=== PATIENT | female | born 1965 | race Caucasian/White ===

== ENCOUNTER 2022-04-09 14:56 | Inpatient (IN) ==
[2022-04-09] MEDS: ARIPiprazole 5 MG TABLET PO SCH (21:35)
[2022-04-09] MEDS: Furosemide 40 MG TABLET PO SCH (21:36)
[2022-04-09] MEDS: CarBAMazepine XR (12 hr) 100 MG TAB PO SCH (21:36)
[2022-04-09] MEDS: Famotidine 20 MG TABLET PO SCH (21:36)
[2022-04-10 07:11] LABS: Basophils # 0.1 K/mcL (0.0-0.2); Basophils % 0.6 %; Eosinophils # 0.4 K/mcL (0.0-0.6); Eosinophils % 4.4 %; Hematocrit 41.6 % (35.3-44.9); Hemoglobin 13.8 g/dL (11.5-15.4); Immature Granulocytes % 0.3 % (0-4); Lymphocytes # 2.3 K/mcL (0.6-4.6); Mean Corpuscular HGB Conc 33.2 g/dL (31.6-35.5); Mean Corpuscular Hemoglobin 31.5 pg (28.0-33.3); Mean Platelet Volume 12.3 fL (9.4-12.4); Monocytes # 0.7 K/mcL (0.0-1.3); Monocytes % 8.8 %; Neutrophils # 4.5 K/mcL (1.6-8.9); Platelet Count 231 K/mcL (140-400); Red Blood Count 4.38 M/mcL (3.82-4.97); Red Cell Distribution Width 14.7 % (11.5-14.5); Segmented Neutrophils % 56.9 %
[2022-04-10 07:27] LABS: Calcium 10.5 mg/dL (8.6-10.3); Potassium 3.4 mEq/L (3.5-5.1)
[2022-04-10] MEDS: Aspirin 81 MG TAB.CHEW PO SCH (09:05)
[2022-04-10] MEDS: Multivit/Ca/Min/Fe/FA 1 TAB TABLET PO SCH (09:05)
[2022-04-10] MEDS: Topiramate 25 MG TABLET PO SCH ×2 (09:05→21:30)
[2022-04-10] MEDS: CarBAMazepine XR (12 hr) 100 MG TAB PO SCH ×2 (09:05→21:30)
[2022-04-10] MEDS: levETIRAcetam 250 MG TABLET PO SCH ×2 (09:07→21:30)
[2022-04-10] MEDS: Famotidine 20 MG TABLET PO SCH ×2 (09:07→21:30)
[2022-04-10] MEDS: DICLOFENAC SODIUM 20 GM TP SCH (09:11)
[2022-04-10] MEDS: VORTIOXETINE HYDROBROMIDE 10 MG PO SCH (09:11)
[2022-04-10] MEDS: Cariprazine Hcl [Vraylar] 4.5 MG PO SCH (09:11)
[2022-04-10] MEDS: Furosemide 40 MG TABLET PO SCH (09:11)
[2022-04-10] MEDS ORDERED: Spironolactone 12.5 MG TABLET PO SCH (15:45)
[2022-04-10] MEDS ORDERED: Ondansetron Oral Soln 2 MG/2.5 ML ORAL.SYG PO PRN (15:59)
[2022-04-10] MEDS ORDERED: Ondansetron ODT 4 MG TAB.RAPDIS SL PRN (18:27)
[2022-04-10] MEDS: ARIPiprazole 5 MG TABLET PO SCH (21:30)
[2022-04-11] MEDS: *HR* Enoxaparin 40 MG/0.4 ML SYRINGE SQ SCH (05:44)
[2022-04-11] MEDS: CarBAMazepine XR (12 hr) 100 MG TAB PO SCH ×2 (09:58→21:08)
[2022-04-11] MEDS: levETIRAcetam 250 MG TABLET PO SCH ×2 (09:58→21:08)
[2022-04-11] MEDS: Multivit/Ca/Min/Fe/FA 1 TAB TABLET PO SCH (09:58)
[2022-04-11] MEDS: Famotidine 20 MG TABLET PO SCH ×2 (09:59→21:08)
[2022-04-11] MEDS: VORTIOXETINE HYDROBROMIDE 10 MG PO SCH (09:59)
[2022-04-11] MEDS: Aspirin 81 MG TAB.CHEW PO SCH (09:59)
[2022-04-11] MEDS: Topiramate 25 MG TABLET PO SCH ×2 (09:59→21:08)
[2022-04-11] MEDS: Cariprazine Hcl [Vraylar] 4.5 MG PO SCH (09:59)
[2022-04-11] MEDS: DICLOFENAC SODIUM 20 GM TP SCH (09:59)
[2022-04-11] MEDS: Sennosides/Docusate Sodium TABLET PO PRN (17:54)
[2022-04-11] MEDS: ARIPiprazole 5 MG TABLET PO SCH (21:08)
[2022-04-12] MEDS: *HR* Enoxaparin 40 MG/0.4 ML SYRINGE SQ SCH (06:37)
[2022-04-12] MEDS: CarBAMazepine XR (12 hr) 100 MG TAB PO SCH ×2 (09:12→20:26)
[2022-04-12] MEDS: Aspirin 81 MG TAB.CHEW PO SCH (09:12)
[2022-04-12] MEDS: Topiramate 25 MG TABLET PO SCH ×2 (09:12→20:26)
[2022-04-12] MEDS: Famotidine 20 MG TABLET PO SCH ×2 (09:12→20:26)
[2022-04-12] MEDS: levETIRAcetam 250 MG TABLET PO SCH ×2 (09:12→20:26)
[2022-04-12] MEDS: VORTIOXETINE HYDROBROMIDE 10 MG PO SCH (09:13)
[2022-04-12] MEDS: Multivit/Ca/Min/Fe/FA 1 TAB TABLET PO SCH (09:13)
[2022-04-12] MEDS: Cariprazine Hcl [Vraylar] 4.5 MG PO SCH (09:13)
[2022-04-12] MEDS: DICLOFENAC SODIUM 20 GM TP SCH (09:13)
[2022-04-12] MEDS: ARIPiprazole 5 MG TABLET PO SCH (20:26)
[2022-04-13] MEDS: *HR* Enoxaparin 40 MG/0.4 ML SYRINGE SQ SCH (06:40)
[2022-04-13] MEDS: Multivit/Ca/Min/Fe/FA 1 TAB TABLET PO SCH (09:41)
[2022-04-13] MEDS: Topiramate 25 MG TABLET PO SCH ×2 (09:42→20:16)
[2022-04-13] MEDS: DICLOFENAC SODIUM 20 GM TP SCH (09:42)
[2022-04-13] MEDS: Cariprazine Hcl [Vraylar] 4.5 MG PO SCH (09:42)
[2022-04-13] MEDS: Famotidine 20 MG TABLET PO SCH ×2 (09:42→20:16)
[2022-04-13] MEDS: Aspirin 81 MG TAB.CHEW PO SCH (09:42)
[2022-04-13] MEDS: VORTIOXETINE HYDROBROMIDE 10 MG PO SCH (09:42)
[2022-04-13] MEDS: levETIRAcetam 250 MG TABLET PO SCH ×2 (09:42→20:16)
[2022-04-13] MEDS: CarBAMazepine XR (12 hr) 100 MG TAB PO SCH ×2 (09:44→20:16)
[2022-04-13] MEDS: ARIPiprazole 5 MG TABLET PO SCH (20:16)
[2022-04-14] MEDS: *HR* Enoxaparin 40 MG/0.4 ML SYRINGE SQ SCH (06:07)
[2022-04-14] MEDS: Topiramate 25 MG TABLET PO SCH ×2 (08:09→22:50)
[2022-04-14] MEDS: CarBAMazepine XR (12 hr) 100 MG TAB PO SCH ×2 (08:09→22:51)
[2022-04-14] MEDS: Famotidine 20 MG TABLET PO SCH ×2 (08:10→22:50)
[2022-04-14] MEDS: Multivit/Ca/Min/Fe/FA 1 TAB TABLET PO SCH (08:10)
[2022-04-14] MEDS: levETIRAcetam 250 MG TABLET PO SCH ×2 (08:10→22:51)
[2022-04-14] MEDS: VORTIOXETINE HYDROBROMIDE 10 MG PO SCH (08:10)
[2022-04-14] MEDS: Aspirin 81 MG TAB.CHEW PO SCH (08:10)
[2022-04-14] MEDS: DICLOFENAC SODIUM 20 GM TP SCH (08:11)
[2022-04-14] MEDS: Cariprazine Hcl [Vraylar] 4.5 MG PO SCH (08:11)
[2022-04-14] MEDS: Sennosides/Docusate Sodium TABLET PO PRN (08:20)
[2022-04-14] MEDS ORDERED: Spironolactone 25 MG TABLET PO ONE (09:19)
[2022-04-14] MEDS: ARIPiprazole 5 MG TABLET PO SCH (22:51)
[2022-04-15] MEDS: Acetaminophen 325 MG TABLET PO PRN ×3 (00:20→15:55)
[2022-04-15] MEDS: *HR* Enoxaparin 40 MG/0.4 ML SYRINGE SQ SCH (06:08)
[2022-04-15] MEDS: CarBAMazepine XR (12 hr) 100 MG TAB PO SCH ×2 (08:24→20:55)
[2022-04-15] MEDS: Topiramate 25 MG TABLET PO SCH ×2 (08:24→20:55)
[2022-04-15] MEDS: DICLOFENAC SODIUM 20 GM TP SCH (08:25)
[2022-04-15] MEDS: Multivit/Ca/Min/Fe/FA 1 TAB TABLET PO SCH (08:25)
[2022-04-15] MEDS: Cariprazine Hcl [Vraylar] 4.5 MG PO SCH (08:25)
[2022-04-15] MEDS: Aspirin 81 MG TAB.CHEW PO SCH (08:25)
[2022-04-15] MEDS: VORTIOXETINE HYDROBROMIDE 10 MG PO SCH (08:25)
[2022-04-15] MEDS: Sennosides/Docusate Sodium TABLET PO PRN (08:25)
[2022-04-15] MEDS: Famotidine 20 MG TABLET PO SCH ×2 (08:25→20:56)
[2022-04-15] MEDS: levETIRAcetam 250 MG TABLET PO SCH ×2 (08:25→20:55)
[2022-04-15] MEDS: ARIPiprazole 5 MG TABLET PO SCH (20:55)
[2022-04-16] MEDS: Acetaminophen 325 MG TABLET PO PRN ×2 (03:42→16:42)
[2022-04-16] MEDS: *HR* Enoxaparin 40 MG/0.4 ML SYRINGE SQ SCH (05:38)
[2022-04-16 07:19] LABS: Hematocrit 37.8 % (35.3-44.9); Hemoglobin 12.4 g/dL (11.5-15.4); Mean Corpuscular HGB Conc 32.8 g/dL (31.6-35.5); Mean Corpuscular Hemoglobin 30.8 pg (28.0-33.3); Mean Corpuscular Volume 93.8 fL (83.0-100.0); Mean Platelet Volume 12.1 fL (9.4-12.4); Platelet Count 185 K/mcL (140-400); Red Blood Count 4.03 M/mcL (3.82-4.97); Red Cell Distribution Width 14.4 % (11.5-14.5); White Blood Count 6.8 K/mcL (4.3-11.1)
[2022-04-16 07:42] LABS: Calcium 9.2 mg/dL (8.6-10.3); Potassium 4.1 mEq/L (3.5-5.1)
[2022-04-16] MEDS: Aspirin 81 MG TAB.CHEW PO SCH (09:14)
[2022-04-16] MEDS: CarBAMazepine XR (12 hr) 100 MG TAB PO SCH ×2 (09:14→20:40)
[2022-04-16] MEDS: levETIRAcetam 250 MG TABLET PO SCH ×2 (09:14→20:40)
[2022-04-16] MEDS: Spironolactone 25 MG TABLET PO SCH (09:14)
[2022-04-16] MEDS: Topiramate 25 MG TABLET PO SCH ×2 (09:15→20:40)
[2022-04-16] MEDS: Multivit/Ca/Min/Fe/FA 1 TAB TABLET PO SCH (09:15)
[2022-04-16] MEDS: Famotidine 20 MG TABLET PO SCH ×2 (09:15→20:40)
[2022-04-16] MEDS: VORTIOXETINE HYDROBROMIDE 10 MG PO SCH (09:16)
[2022-04-16] MEDS: Cariprazine Hcl [Vraylar] 4.5 MG PO SCH (09:16)
[2022-04-16] MEDS: DICLOFENAC SODIUM 20 GM TP SCH (09:16)
[2022-04-16] MEDS: ARIPiprazole 5 MG TABLET PO SCH (20:40)
[2022-04-17] MEDS: *HR* Enoxaparin 40 MG/0.4 ML SYRINGE SQ SCH (05:01)
[2022-04-17] MEDS: Topiramate 25 MG TABLET PO SCH ×2 (08:16→19:31)
[2022-04-17] MEDS: Acetaminophen 325 MG TABLET PO PRN ×2 (08:17→19:31)
[2022-04-17] MEDS: Multivit/Ca/Min/Fe/FA 1 TAB TABLET PO SCH (08:18)
[2022-04-17] MEDS: Famotidine 20 MG TABLET PO SCH ×2 (08:18→19:31)
[2022-04-17] MEDS: levETIRAcetam 250 MG TABLET PO SCH ×2 (08:18→19:32)
[2022-04-17] MEDS: Aspirin 81 MG TAB.CHEW PO SCH (08:18)
[2022-04-17] MEDS: Spironolactone 25 MG TABLET PO SCH (08:18)
[2022-04-17] MEDS: CarBAMazepine XR (12 hr) 100 MG TAB PO SCH ×2 (08:19→19:31)
[2022-04-17] MEDS: Cariprazine Hcl [Vraylar] 4.5 MG PO SCH (08:19)
[2022-04-17] MEDS: VORTIOXETINE HYDROBROMIDE 10 MG PO SCH (08:19)
[2022-04-17] MEDS: DICLOFENAC SODIUM 20 GM TP SCH (08:19)
[2022-04-17 16:43] LABS: Adenovirus Not Detected (Not Detect); Bordetella Pertussis Not Detected (Not Detect); Chlamydophila pneumoniae Not Detected (Not Detect); Coronavirus 229E Not Detected (Not Detect); Coronavirus HKU1 Not Detected (Not Detect); Coronavirus NL63 Not Detected (Not Detect); Coronavirus OC43 Not Detected (Not Detect); Human Metapneumovirus Not Detected (Not Detect); Human Rhinovirus/Enterovirus Not Detected (Not Detect); Influenza A Subtype 2009 H1 Not Detected (Not Detect); Influenza B Not Detected (Not Detect); Mycoplasma pneumoniae Not Detected (Not Detect); Parainfluenza Virus 1 Not Detected (Not Detect); Parainfluenza Virus 2 Not Detected (Not Detect); Parainfluenza Virus 3 Not Detected (Not Detect); Parainfluenza Virus 4 Not Detected (Not Detect); Respiratory Syncytial Virus Not Detected (Not Detect); SARS-CoV-2 Not Detected (Not Detect)
[2022-04-17] MEDS: ARIPiprazole 5 MG TABLET PO SCH (19:31)
[2022-04-18] MEDS: Acetaminophen 325 MG TABLET PO PRN (03:36)
[2022-04-18] MEDS: *HR* Enoxaparin 40 MG/0.4 ML SYRINGE SQ SCH (05:05)
[2022-04-18] MEDS: Multivit/Ca/Min/Fe/FA 1 TAB TABLET PO SCH (08:25)
[2022-04-18] MEDS: Topiramate 25 MG TABLET PO SCH ×2 (08:25→20:08)
[2022-04-18] MEDS: VORTIOXETINE HYDROBROMIDE 10 MG PO SCH (08:26)
[2022-04-18] MEDS: Cariprazine Hcl [Vraylar] 4.5 MG PO SCH (08:26)
[2022-04-18] MEDS: Spironolactone 25 MG TABLET PO SCH (08:26)
[2022-04-18] MEDS: levETIRAcetam 250 MG TABLET PO SCH ×2 (08:26→20:08)
[2022-04-18] MEDS: Famotidine 20 MG TABLET PO SCH ×2 (08:26→20:07)
[2022-04-18] MEDS: Aspirin 81 MG TAB.CHEW PO SCH (08:26)
[2022-04-18] MEDS: CarBAMazepine XR (12 hr) 100 MG TAB PO SCH ×2 (08:26→20:07)
[2022-04-18] MEDS: DICLOFENAC SODIUM 20 GM TP SCH (08:27)
[2022-04-18 08:31] LABS: Calcium 9.4 mg/dL (8.6-10.3)
[2022-04-18] MEDS: ARIPiprazole 5 MG TABLET PO SCH (20:07)
[2022-04-18] MEDS: polyethylene glycoL 3350 17 GM POWD.PACK PO SCH (20:11)
[2022-04-19] MEDS: Acetaminophen 325 MG TABLET PO PRN ×2 (01:51→10:28)
[2022-04-19] MEDS: *HR* Enoxaparin 40 MG/0.4 ML SYRINGE SQ SCH (06:57)
[2022-04-19] MEDS: CarBAMazepine XR (12 hr) 100 MG TAB PO SCH ×2 (10:27→22:46)
[2022-04-19] MEDS: Multivit/Ca/Min/Fe/FA 1 TAB TABLET PO SCH (10:27)
[2022-04-19] MEDS: Famotidine 20 MG TABLET PO SCH ×2 (10:27→22:45)
[2022-04-19] MEDS: levETIRAcetam 250 MG TABLET PO SCH ×2 (10:27→22:45)
[2022-04-19] MEDS: Topiramate 25 MG TABLET PO SCH ×2 (10:27→22:46)
[2022-04-19] MEDS: Aspirin 81 MG TAB.CHEW PO SCH (10:27)
[2022-04-19] MEDS: polyethylene glycoL 3350 17 GM POWD.PACK PO SCH (10:28)
[2022-04-19] MEDS: VORTIOXETINE HYDROBROMIDE 10 MG PO SCH (10:35)
[2022-04-19] MEDS: Cariprazine Hcl [Vraylar] 4.5 MG PO SCH (10:35)
[2022-04-19] MEDS: DICLOFENAC SODIUM 20 GM TP SCH (10:35)
[2022-04-19] MEDS: Loratadine 10 MG TABLET PO SCH (15:28)
[2022-04-19] MEDS: ARIPiprazole 5 MG TABLET PO SCH (22:45)
[2022-04-20] MEDS: *HR* Enoxaparin 40 MG/0.4 ML SYRINGE SQ SCH (07:04)
[2022-04-20] MEDS: CarBAMazepine XR (12 hr) 100 MG TAB PO SCH ×2 (10:11→21:43)
[2022-04-20] MEDS: Multivit/Ca/Min/Fe/FA 1 TAB TABLET PO SCH (10:11)
[2022-04-20] MEDS: levETIRAcetam 250 MG TABLET PO SCH ×2 (10:12→21:44)
[2022-04-20] MEDS: Aspirin 81 MG TAB.CHEW PO SCH (10:12)
[2022-04-20] MEDS: Loratadine 10 MG TABLET PO SCH (10:13)
[2022-04-20] MEDS: Topiramate 25 MG TABLET PO SCH ×2 (10:13→21:44)
[2022-04-20] MEDS: Famotidine 20 MG TABLET PO SCH ×2 (10:13→21:43)
[2022-04-20] MEDS: polyethylene glycoL 3350 17 GM POWD.PACK PO SCH (10:13)
[2022-04-20] MEDS: DICLOFENAC SODIUM 20 GM TP SCH (10:14)
[2022-04-20] MEDS: VORTIOXETINE HYDROBROMIDE 10 MG PO SCH (10:14)
[2022-04-20] MEDS: Cariprazine Hcl [Vraylar] 4.5 MG PO SCH (10:14)
[2022-04-20] MEDS: Acetaminophen 325 MG TABLET PO PRN ×2 (12:49→21:46)
[2022-04-20] MEDS: ARIPiprazole 5 MG TABLET PO SCH (21:43)
[2022-04-21] MEDS: *HR* Enoxaparin 40 MG/0.4 ML SYRINGE SQ SCH (05:41)
[2022-04-21] MEDS: levETIRAcetam 250 MG TABLET PO SCH ×2 (11:03→20:02)
[2022-04-21] MEDS: CarBAMazepine XR (12 hr) 100 MG TAB PO SCH ×2 (11:05→20:03)
[2022-04-21] MEDS: Topiramate 25 MG TABLET PO SCH ×2 (11:06→20:03)
[2022-04-21] MEDS: Loratadine 10 MG TABLET PO SCH (11:06)
[2022-04-21] MEDS: Multivit/Ca/Min/Fe/FA 1 TAB TABLET PO SCH (11:06)
[2022-04-21] MEDS: Famotidine 20 MG TABLET PO SCH ×2 (11:06→20:03)
[2022-04-21] MEDS: Aspirin 81 MG TAB.CHEW PO SCH (11:06)
[2022-04-21] MEDS: DICLOFENAC SODIUM 20 GM TP SCH (11:07)
[2022-04-21] MEDS: polyethylene glycoL 3350 17 GM POWD.PACK PO SCH (11:07)
[2022-04-21] MEDS: VORTIOXETINE HYDROBROMIDE 10 MG PO SCH (11:07)
[2022-04-21] MEDS: Cariprazine Hcl [Vraylar] 4.5 MG PO SCH (11:07)
[2022-04-21 19:12] VITALS: RESP 16
[2022-04-21] MEDS: ARIPiprazole 5 MG TABLET PO SCH (20:02)
[2022-04-21] MEDS: Acetaminophen 325 MG TABLET PO PRN (20:04)
[2022-04-22] MEDS: Acetaminophen 325 MG TABLET PO PRN ×2 (05:20→15:45)
[2022-04-22] MEDS: *HR* Enoxaparin 40 MG/0.4 ML SYRINGE SQ SCH (05:21)
[2022-04-22] MEDS: polyethylene glycoL 3350 17 GM POWD.PACK PO SCH (07:49)
[2022-04-22] MEDS: levETIRAcetam 250 MG TABLET PO SCH ×2 (07:50→20:15)
[2022-04-22] MEDS: Famotidine 20 MG TABLET PO SCH ×2 (07:50→20:15)
[2022-04-22] MEDS: Topiramate 25 MG TABLET PO SCH ×2 (07:50→20:15)
[2022-04-22] MEDS: Aspirin 81 MG TAB.CHEW PO SCH (07:50)
[2022-04-22] MEDS: CarBAMazepine XR (12 hr) 100 MG TAB PO SCH ×2 (07:51→20:15)
[2022-04-22] MEDS: Loratadine 10 MG TABLET PO SCH (07:51)
[2022-04-22] MEDS: Cariprazine Hcl [Vraylar] 4.5 MG PO SCH (07:51)
[2022-04-22] MEDS: Multivit/Ca/Min/Fe/FA 1 TAB TABLET PO SCH (07:51)
[2022-04-22] MEDS: DICLOFENAC SODIUM 20 GM TP SCH (07:51)
[2022-04-22] MEDS: VORTIOXETINE HYDROBROMIDE 10 MG PO SCH (07:51)
[2022-04-22] MEDS: ARIPiprazole 5 MG TABLET PO SCH (20:15)
[2022-04-23] MEDS: *HR* Enoxaparin 40 MG/0.4 ML SYRINGE SQ SCH (05:57)
[2022-04-23 07:02] VITALS: BP 127/80; PULSE 109; TEMP 97.9; O2SAT 97
[2022-04-23] MEDS: VORTIOXETINE HYDROBROMIDE 10 MG PO SCH (07:32)
[2022-04-23] MEDS: Cariprazine Hcl [Vraylar] 4.5 MG PO SCH (07:32)
[2022-04-23] MEDS: DICLOFENAC SODIUM 20 GM TP SCH (07:33)
[2022-04-23] MEDS: Loratadine 10 MG TABLET PO SCH (09:03)
[2022-04-23] MEDS: Topiramate 25 MG TABLET PO SCH (09:03)
[2022-04-23] MEDS: polyethylene glycoL 3350 17 GM POWD.PACK PO SCH (09:03)
[2022-04-23] MEDS: levETIRAcetam 250 MG TABLET PO SCH (09:04)
[2022-04-23] MEDS: CarBAMazepine XR (12 hr) 100 MG TAB PO SCH (09:04)
[2022-04-23] MEDS: Famotidine 20 MG TABLET PO SCH (09:04)
[2022-04-23] MEDS: Multivit/Ca/Min/Fe/FA 1 TAB TABLET PO SCH (09:04)
[2022-04-23] MEDS: Aspirin 81 MG TAB.CHEW PO SCH (09:05)
[2022-04-23] MEDS: Acetaminophen 325 MG TABLET PO PRN ×2 (09:45→16:13)
== END 2022-04-23 19:15 | disposition home or self-care (01) | DRG 753 ==
LOC: INPPIK 20:56
PROVIDERS: ADMIT Internal Medicine; ATTEND Internal Medicine